=== PATIENT | female | born 1995 | race African-American/Black ===

== ENCOUNTER 2016-12-30 | Emergency (ER) | payer OTHER | END 2016-12-30 19:00 | disposition home or self-care (01) ==

== ENCOUNTER 2019-09-01 07:52 | Outpatient (CLI) | payer OTHER ==
--- NOTE | 2019-09-04 10:52 | MRI Report ---
Reason: RT ANKLE PAIN Procedure Date: 09/01/2019 Accession Number: [id number] / [id number] Procedure: MRI - Ankle RT W/O CPT Code: FULL RESULT: EXAM: RIGHT ANKLE/HINDFOOT MRI WITHOUT CONTRAST EXAM DATE: 09/01/2019 10:54 AM. CLINICAL HISTORY: Right ankle pain. COMPARISON: None. TECHNIQUE: Multiplanar, multisequence T1-weighted and fluid-sensitive sequences of the ankle/hindfoot without contrast. Other: None. FINDINGS: Bones and articular cartilage: There is an approximately 1.5 x 0.8 x 0.5 cm area of subcortical cysts, grade II chondromalacia, and subchondral marrow edema at the medial aspect of the talar dome. No discrete osteochondral fragment is seen. Minimal subcortical marrow edema at the plantar medial aspect of the talar head. No acute fracture. Ligaments: The anterior and posterior tibiofibular, anterior and posterior talofibular, and calcaneofibular ligaments are intact. The deep and superficial deltoid and spring ligaments are intact. Anterior Tendons: The tibialis anterior, extensor hallucis longus, and extensor digitorum longus tendons are unremarkable. Medial Tendons: Mild focal posterior tibialis tenosynovitis at the level of the medial malleolus. The flexor digitorum longus and flexor hallucis longus tendons are unremarkable. Lateral Tendons: The peroneus brevis and longus are unremarkable. Achilles Tendon: The Achilles tendon is unremarkable. Musculature: No edema or fatty atrophy. Other: No effusions. The contents of the sinus tarsi and tarsal tunnel are unremarkable. No plantar fasciitis. The subcutaneous tissues are unremarkable. IMPRESSION: 1. Osteochondral injury/lesion at the medial aspect of the talar dome. 2. Mild focal posterior tibialis tenosynovitis at the level of the medial malleolus. [facility]
== END 2019-09-01 07:53 | disposition home or self-care (01) ==
LOC: DI 07:52
DX: S99.911A Unspecified injury of right ankle, initial encounter (principal); M25.871 Other specified joint disorders, right ankle and foot; M65.871 Other synovitis and tenosynovitis, right ankle and foot